=== PATIENT | female | born 1980 | race Caucasian/White ===

== ENCOUNTER 2024-08-25 08:38 | Outpatient (CLI) | payer OTHER, SELFPAY ==
--- OUTSIDE RECORDS SUMMARY | 2024-08-25 08:41 | XMS_ITS | Encounter Summary ---
Author Organization [facility] Address [address] [address] Care Team Providers Care Tank Tester Name Role Phone Unassigned, Provider Primary Care Provider Unava ilable Reason for Visit * Reason Comments Hip Problem Encounter Details Date Type Department Care Team (Late st Contact Info) Description 06/23/2024 1:45 PM CDT Therapy [facility] [place] [id number] [place] [address] [place] [address] [place] [address] Pain of right hip (Primary Dx); Right hip pain Social History Tobacco Use Types Packs/Day Years Used Date Smoking Tobacco: Never Sex and Gender Information Value Date Recorded Sex Assigned at Not on file Gender Identity Not on file Sexual Orientation Not on file documented as of this encounter Progress Notes * Svetlana Aden, PT - 06/23/2024 1:45 PM CDT Physical Therapy Progress Note Visit Number: 3 Initial Certification Period: 06/05/2024 to 09/03/24 Referring Provider: Hellen Hodges Visit Diagnosis: 1. Pain of right hip 2. 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 6/10 after riding No night time pain and good the next day 3x a week of exercises and was really sore OBJECTIVE Current Objective Findings: ROM: AROM of the hip: slight limitations into ER and flexion due to pain and tightness Strength: overall good strength of all myotomes reproduction of hip pain on SLR in supine Functional Tests: patient is able to walk on both level ground and stairs without pain SL sit to stand: x10 on left side x10 on right side but increased lateral lean Treatment/Education Today: Therapuetic exercise x30min Patient was instructed and performed below Home exercise program with varying sets and reps until form adjusted adequately and questions were answered to the best of the PTs ability - sideplank with hip abduction x10 each side *Cues for hips stacked - copenhagen statix x10 each side -wall sit with marches *able to perform today -wall sit hold 2x60s holds -single leg sit to stand x5 *just felt wobbly -single leg bridge x10 each side *very hard -figure 4 bridge x10 each side *easier Timed Code Treatment Minutes: 30 Total Treatment Minutes: 30 Current Home Exercise Program List: Access Code: [email or web address] URL: [email or web address] Date: 06/23/2024 Prepared by: Svetlana Heredia Exercises - Wall Squat - 1 x daily - 3-4 x weekly - 4 sets - 60s hold - Modified Side Plank with Hip Abduction - 1 x daily - 3-4 x weekly - 3 sets - 10 reps - [place] - Short Lever Moving Leg - 1 x daily - 3-4 x weekly - 3 sets - 10 reps - Figure 4 Bridge - 1 x daily - 3-4 x weekly - 3 sets - 10 reps *changed HEP ASSESSMENT/PROGRESS TOWARD GOALS: Pt comes in for right front hip pain that flairs with horseback riding and running. Soreness is getting better. Discussion that she can continue to perform her sport if pain continues to calm down bythe next day and she can continue her HEP. Exercise routine changed to every other day due to patient soreness. Skilled PT services are needed to address above issues. Functional Goals/Outcomes: Independent with HEP Patient will be able to ride a horse without pain Patient will be able to sleep without pain Goals to be achieved within 4-6 week time frame. PLAN: Hip strengthening documented in this encounter Plan of Treatment Upcoming Encounters Date Type Department Care Team (Late st Contact Info) Description 09/11/2024 2:00 PM CDT Appointment [facility] [place] [id number] [place] [address] [place] [address] [place] [address] documented as of this encounter Visit Diagnoses Diagnosis Pain of right hip- Primary Right hip pain Pain in joint, pelvic region and thigh documented in this encounter Care Teams Tank Tester Relationship Specialty Start Date End Date Unassigned, Provider [address] [place] [address] PCP - General 10/18/02 documented as of this encounter
--- OUTSIDE RECORDS SUMMARY | 2024-08-25 08:41 | XMS_ITS | Encounter Summary ---
Author Organization [facility] Address [address] [place] [address] Care Team Providers Care Meter Reading Clerk Name Role Phone Unassigned, Provider Primary Care Provider Unava ilable Reason for Visit * Reason Comments Hip Problem * Therapies (Routine) - New Request Specialty Diagnoses / Procedures Referred By Contac t Referred To Contact Diagnoses Right hip pain Hellen Hodges, PA-C [address] [place] [id number] Referral ID Status Reason Start Date Expiration Date V isits Requested Visits Authorized [id number] New Request 06/05/2024 06/05/2025 1 1 Encounter Details Date Type Department Care Team (Late st Contact Info) Description 06/05/2024 1:00 PM CDT Therapy [facility] [place] [address] [place], [place] [id number] [place] [address] [place] [id number] Right hip pain (Primary Dx) Social History Tobacco Use Types Packs/Day Years Used Date Smoking Tobacco: Never Sex and Gender Information Value Date Recorded Sex Assigned at Not on file Gender Identity Not on file Sexual Orientation Not on file documented as of this encounter Progress Notes * Nestor Fitzgerald, PT - 06/05/2024 1:00 PM CDT Physical Therapy Hip Evaluation/Plan of Care Initial Certification Period: 06/05/2024 to 09/03/24 Referring Provider: Hellen Hodges Visit Diagnosis: 1. Right hip pain Precautions: None Orders: Evaluate & treat Onset/Referral Date: 2 months SUBJECTIVE Reason for Visit: Patient is a 43 year old female presenting with c/o right hip pain and some left knee pain. She denies any specific event that might have caused it even though she suspect that riding her horse is the reason for the hip pain as this is pretty much the only time she has the pain. The pain in the hip is localized to the anterior aspect of the hip. As for the left knee, she only experiences occasional pain when going down stairs or getting off her horse. Patient Therapy Goals:Resume previous level of activity symptom free. Past Medical History: Patient has no past medical history on file. Recently Experienced (Red Flags): none Previous Treatment: None Benefited from previous treatment: not applicable Work/Leisure/Sport: salesperson pets and pet supplies; for exercises she rides horses 4-6 times a week, Patient History: Moderate Complexity: 1-2 personal factors and/or comorbidities that impact plan of care: see medical Hx and subjective part OBJECTIVE Gait Exam: Normal Screening: LB: essentially full in all planes without any reproduction of her symptoms ROM: AROM of the hip: slight limitations into ER and flexion due to pain and tightness Strength: overall good strength of all myotomes with reproduction of hip pain on SLR in supine Joint Mobility: NT Palpation/Tenderness: NT Special Tests: Fabers test: (++) Proprioception: NT Functional Tests: patient is able to walk on both level ground and stairs without pain PT - Musculoskeletal - Hip Hip Outcomes Score - ADL (0-100%, 100% being best): 75 Clinical Examination: Moderate Complexity: Addressed 3 elements from body structures and functions (see above), and/or functional limitations as noted below. Today's Intervention/Charges: Physical Therapy Evaluation was completed and the patient was educated on the condition, planned therapy intervention and expectations from treatment. Therapeutic exercise x 12 minutes: Patient was instructed in the course of her rehab, which will focus on hip strengthening. WE also asked the patient to do her best to avoid any activities that cause pain. For HEP, she was provided with the following exercise program: Access Code: [email or web address] URL: [email or web address] Date: 06/05/2024 Prepared by: Taiwo Fitzgerald Exercises - Supine Single Knee to Chest Stretch - 3 x daily - 7 x weekly - 3 sets - 10 reps - 10 seconds hold - Butterfly Groin Stretch - 3 x daily - 7 x weekly - 3 sets - 10 reps - 10 seconds (do in sitting on a chair) hold - Seated Isometric Hip Adduction with Ball - 3 x daily - 7 x weekly - 3 sets - 10 reps - 10 secondshold - Supine Active Straight Leg Raise - 3 x daily - 7 x weekly - 3 sets - 10 reps - Sidelying Hip Abduction - 3 x daily - 7 x weekly - 3 sets - 10 reps - Supine Bridge - 3 x daily - 7 x weekly - 3 sets - 10 reps - Wall Quarter Squat - 3 x daily - 7 x weekly - 3 sets - 10 reps - 10 seconds hold Timed Code Treatment Minutes: 12 Total Treatment Minutes: 25 ASSESSMENT Therapist Impression/Summary: Right hip pain PT Clinical Presentation: Moderate Complexity: Evolving Clinical Presentation with changing clinical characteristics Clinical Decision Making: Moderate Complexity Recommendations/Equipment: No additional recommendations at this time Significant Impairments: Pain, ROM Limitation Functional Limitations: difficulty sleeping and difficulty with sports/leisure activities Goals/Functional Outcomes: Independent with HEP Patient will be able to ride a horse without pain Patient will be able to sleep without pain Goals to be achieved within 4-6 week time frame. Barriers to Goal Achievement or Learning: none Prognosis: Good PLAN Planned Intervention/Education: Education, Manual Therapy, Therapeutic Exercise Frequency: 1 x week, 2 x week Duration: 45 days Discharge Plan: Patient will be discharged from therapy when goals are achieved or patient plateausin progress. Informed Consent: Patient and/or family in agreement with the care plan. Plan for Next Treatment: patient was encouraged to schedule more visits. The radon inspector is completed by the therapist and the referring clinician's electronic signature certifies medical necessity for the plan above. documented in this encounter Plan of Treatment Upcoming Encounters Date Type Department Care Team (Late st Contact Info) Description 09/11/2024 2:00 PM CDT Appointment [facility] [address] [address] [place] [address] [place] [address] Scheduled Referrals Name Type Priority Associated Diagnoses Orde r Schedule Physical Therapy Referral Routine Right hip pain Ordered: 06/05/2024 documented as of this encounter Visit Diagnoses Diagnosis Right hip pain- Primary Pain in joint, pelvic region and thigh documented in this encounter Care Teams Meter Reading Clerk Relationship Specialty Start Date End Date Unassigned, Provider [address] [place] [address] PCP - General 10/18/02 documented as of this encounter
--- OUTSIDE RECORDS SUMMARY | 2024-08-25 08:41 | XMS_ITS | Referral Summary ---
Author Organization [facility] Address [address] [place] [address] Care Team Providers Care Dress Draper Name Role Phone Antonio Thomson MD Primary Care Provide r Allergies Active Allergy Reactions Criticality Noted Date Comments Sulfa Antibiotics Itching 03/02/2022 rash Medications Medication Sig Dispensed Refills Start Date End Date Status oxyCODONE (ROXICODONE) 5 MG tablet Take 1 tablet (5 mg) by mouth every 6 hours as needed for breakthrough pain or pain 6 tablet 03/02/2022 Active Active Problems No known active problems Immunizations Name Administration Dates Next Due Historical DTP/aP 11/20/1985,08/29/1982,06/29/19 82,03/29/1982 MMR 04/20/1983 Mantoux Tuberculin Skin Test 12/25/1982 OPV, trivalent, live 07/15/1988,11/20/1985 TD,PF 7+ (Tenivac) 07/15/1988 Social History Tobacco Use Types Packs/Day Years Used Date Smoking Tobacco: Never Assessed Adolescent Education Answer Date Record ed Getting School Help Needed Not on file 08/22 Sex and Gender Information Value Date Recorded Sex Assigned at Not on file Gender Identity Not on file Sexual Orientation Not on file Last Filed Vital Signs Vital Sign Reading Time Taken Comments Blood Pressure 109/66 03/02/2022 6:30 PM CDT Pulse 75 03/02/2022 6:30 PM CDT Temperature 36.7 ??C (98.1 ??F) 03/02/2022 1:30 PM CD T Respiratory Rate 18 03/02/2022 4:00 PM CDT Oxygen Saturation 98% 03/02/2022 6:30 PM CDT Inhaled Oxygen Concentration - - Weight 71.2 kg (157 lb) 03/02/2022 1:30 PM CDT Height 172.7 cm (5' 8) 03/02/2022 1:30 PM CDT Body Mass Index 23.87 03/02/2022 1:30 PM CDT Plan of Treatment Not on file Care Teams Dress Draper Relationship Specialty Start Date End Date Antonio Thomson MD [address] [id number] PCP - General manager agency 03/02/22
--- OUTSIDE RECORDS SUMMARY | 2024-08-25 08:41 | XMS_ITS | Clinical Summary ---
Author Organization [facility] Address [place], [place] [address] Care Team Providers Care Php Engineer Name Role Phone None Primary Care Provider Unavailabl e Allergies Active Allergy Reactions Criticality Noted Date Comments Sulfa (Sulfonamide Antibiotics) *Unknown 03/15 Medications Medication Sig Dispensed Refills Start Date End Date Status turmeric 400 mg cap Take by mouth. A ctive ibuprofen (ADVIL; MOTRIN) 600 mg tabletIndications:S/P laparoscopic surgery Take 1 Tablet (600 mg) by mouth every 6 hours if needed for Pain. Maximum of 3200 mg in 24 hours. 30 Tablet 04/02/2022 Active benzonatate (TESSALON) 200 mg capsuleIndications:CO VID-19 Take 1 Capsule (200 mg) by mouth 3 times daily if needed for Cough. 21 Capsule 07/12/2022 Active Amphetamine-Dextroamp hetamine (ADDERALL) 15 mg tablet 08/30/2023 Active dextroamphetamine-amp hetamine (ADDERALL XR) 10 mg Extended-Release capsule Take 10 mg by mouth once daily. 07/06/2023 Active dextroamphetamine-amp hetamine (ADDERALL XR) 15 mg Extended-Release capsule Take 15 mg by mouth once daily. 08/16/2023 Active lisdexamfetamine (VYVANSE) 20 mg capsule Take 20 mg by mouth once daily. 11/01/2023 Active tiZANidine (ZANAFLEX) 4 mg tablet TAKE 1 TABLET BY MOUTH AT BEDTIME NEEDED FOR PAIN 08/16/2023 Active methylPREDNISolone (MEDROL DOSEPAK) 4 mg tablet USE DIRECTED 08/17/2023 Active calcium phosphate dibas/vit D3 (VITAMIN D, WITH CALCIUM, ORAL) Vitamin D Active dextroamphetamine-amp hetamine (ADDERALL XR) 20 mg Extended-Release capsule 08/30/2023 Active Active Problems No known active problems Family History Medical History Relation Name Comments Genetic Other Family history of:~Skin Cancer- mother~~Breast Cancer: mat aunt~~Ovarian Cancer: No~~Colon CA: No~~Prostate/Testicular CA: No~~Osteoporosis: No~~Early CAD: No~~DM: No~~Thyroid Dz: No Relation Name Status Comments Other Social History Tobacco Use Types Packs/Day Years Used Date Smoking Tobacco: Former Smokeless Tobacco: Never Tobacco Cessation:Counseling Given: Yes Alcohol Use Standard Drinks/Week Comments Yes 0 (1 standard drink = 0.6 oz pur e alcohol) a few drinks a week if that Social Connections Answer Date Recorded Frequency of Communication with Friends and Fami ly Not on file 05/15/2022 Sex and Gender Information Value Date Recorded Sex Assigned at Not on file Gender Identity Not on file Sexual Orientation Not on file Obstetrics History Last Filed Vital Signs Vital Sign Reading Time Taken Comments Blood Pressure 104/62 11/18/2023 1:54 PM CHIN STRAP MAKER Pulse 81 11/18/2023 1:04 PM CHIN STRAP MAKER Temperature 36.7 ??C (98 ??F) 11/18/2023 1:04 PM CHIN STRAP MAKER Respiratory Rate 12 11/18/2023 1:04 PM CHIN STRAP MAKER Oxygen Saturation 100% 11/18/2023 1:04 PM CHIN STRAP MAKER Inhaled Oxygen Concentration - - Weight 73.8 kg (162 lb 11.2 oz) 11/18/2023 1:04 PM CHIN STRAP MAKER Height 172.7 cm (5' 8) 04/02/2022 8:36 AM CDT Body Mass Index 24.74 04/02/2022 8:36 AM CDT Plan of Treatment Health Maintenance Due Date Last Done Comments Tdap 1992 Depression screening for age 12+ 1993 HIV for age 15-65 1996 BMI (ht and wt on same day) for age 18+ 1999 Hepatitis C screening for ag e 18-79 1999 Tetanus booster 2001 Pap test for age 21-65 2002 COVID-19 vaccine series (2023- season) 2024 Influenza for age 9-49 07/16/2024 Pneumococcal series for age 6-64 Aged Out No longer eligible based on patient's age to complete this topic Advance Directives * Full Code (Latest Code Status on File) Date Activated Date Inactivated Comments 04/02/2022 8:17 AM 04/02/2022 4:33 PM Question Answer Comments Code Status Discussion: Reviewed Preferences Care Teams Php Engineer Relationship Specialty Start Date End Date None . PCP - General 11/18/23
--- OUTSIDE RECORDS SUMMARY | 2024-08-25 08:41 | XMS_ITS | Encounter Summary ---
Author Organization [facility] Address [address], [place] [address] Care Team Providers Care Reading Tutor Name Role Phone Unassigned, Provider Primary Care Provider Unava ilable Reason for Visit * Reason Comments Hip Problem Encounter Details Date Type Department Care Team (Late st Contact Info) Description 06/16/2024 1:45 PM CDT Therapy [facility] [place] [id number] [place] [address] [place] [address] [place] [address] Pain of right hip (Primary Dx); Right hip pain Social History Tobacco Use Types Packs/Day Years Used Date Smoking Tobacco: Never Sex and Gender Information Value Date Recorded Sex Assigned at Not on file Gender Identity Not on file Sexual Orientation Not on file documented as of this encounter Progress Notes * Svetlana Aden, PT - 06/16/2024 1:45 PM CDT Physical Therapy Progress Note Visit Number: 2 Initial Certification Period: 06/05/2024 to 09/03/24 Referring Provider: Hellen Hodges Visit Diagnosis: 1. Pain of right hip 2. Right hip pain Precautions: none SUBJECTIVE: Constant low level pain in the hip with doing exercises 1-2/10 Is riding and that is when hip hurts- lateral work was causing increased pain so has stopped this Also shows dogs so is running/doing agility with them and this flairs it Riding itself is getting better- soreness but can sleep 3x10 1 x daily exercises but they are easy Adductor movement is the worst- increased achiness Left knee pain hurts when striking down OBJECTIVE Current Objective Findings: ROM: AROM of [...] but increased lateral lean Treatment/Education Today: Therapuetic [id number] -active listening of pts concerns -encouraged to slowly get back to lateral horseback riding, discussed that she can flair her symptoms and not hurt anything as her symptoms calm back down by the next day -discussion of treatment options do not change if labral tear or not. Treating weakness noted in right leg Therapuetic exercise x30min Patient was instructed and performed below Home exercise program with varying sets and reps until form adjusted adequately and questions were answered to the best of the PTs ability - sideplank with hip abduction x10 each side - copenhagen statix 2 x10 each side -wall sit with marches *unable to perform -wall sit hold -single leg sit to stand x10 each side *decreased balance and increased lean right on right leg Timed Code Treatment Minutes: 38 Total Treatment Minutes: 38 Current Home Exercise Program List: Access Code: [email or web address] URL: [email or web address] Date: 06/16/2024 Prepared by: Svetlana Heredia Exercises - Wall Squat - 1 x daily - 7 x weekly - 3 sets - 10 reps - Modified Side Plank with Hip Abduction - 1 x daily - 7 x weekly - 3 sets - 10 reps - [place] [facility] - Short Lever Moving Leg - 1 x daily - 7 x weekly - 3 sets - 10 reps - Single Leg Sit to Stand with Arms Crossed - 1 x daily - 7 x weekly - 3 sets - 10 reps *changed HEP ASSESSMENT/PROGRESS TOWARD GOALS: Pt comes in for right front hip pain that flairs with horseback riding and running. Pt reports 3/10pain compared to 11/24 coming into session after exercises. Discussion that she can continue to perform her sport if pain continues to calm down by the next day and she can continue her HEP. Changed her HEP to address strength deficits. Skilled PT services are needed to address [...] 2:00 PM CDT Appointment [facility] [place] [id number] [place] [address] [place] [address] [place] [address] documented as of this encounter Visit Diagnoses Diagnosis Pain of right hip- Primary Right hip pain Pain in joint, pelvic region and thigh documented in this encounter Care Teams Reading Tutor Relationship Specialty Start Date End Date Unassigned, Provider [address] [place] [address] PCP - General 10/18/02 documented as of this encounter
--- OUTSIDE RECORDS SUMMARY | 2024-08-25 08:41 | XMS_ITS | Encounter Summary ---
Author Organization [facility] Address [address] [address] Care Team Providers Care Turbogenerator Operator Name Role Phone Unassigned, Provider Primary Care Provider Unava ilable Reason for Visit * Reason Comments Hip Problem Encounter Details Date Type Department Care Team (Late st Contact Info) Description 06/30/2024 1:45 PM CDT Therapy [facility] [place] [address] [place] [address] [place] [address] [place] [address] Pain of right hip (Primary Dx); Right hip pain Social History Tobacco Use Types Packs/Day Years Used Date Smoking Tobacco: Never Sex and Gender Information Value Date Recorded Sex Assigned at Not on file Gender Identity Not on file Sexual Orientation Not on file documented as of this encounter Progress Notes * Svetlana Aden, PT - 06/30/2024 1:45 PM CDT Physical Therapy Progress Note Visit Number: 4 Initial Certification Period: 06/05/2024 to 09/03/24 Referring Provider: Hellen Hodges Visit Diagnosis: 1. Pain of right hip 2. Right hip pain Precautions: none SUBJECTIVE: Hasn't been doing exercises 1.5x maybe this week. Hip is feeling the same- more lateral stuff and working with a horse. Not as bad as first came in to PT though OBJECTIVE Current Objective Findings: ROM: AROM of [...] increased lateral lean Treatment/Education Today: Therapuetic exercise x15min Patient was instructed and performed below Home exercise program with varying sets and reps until form adjusted adequately and questions were answered to the best of the PTs ability - sideplank with hip abduction x10 each side *Cues for hips stacked -wall sit hold x60s holds -figure 4 bridge x10 each side -[place] with top knee bent *felt more in core Therapuetic [id number] -review of current status/symptoms as it pertains to meeting patietn goals -motivational interviewing on how to prioritize exercise routine -discussion that conservative treatment is best option for her pains Timed Code Treatment Minutes: 23 Total Treatment Minutes: 23 Current Home Exercise Program List: Access Code: [email or web address] URL: [email or web address] Date: 06/23/2024 Prepared by: Svetlana Heredia Exercises - Wall Squat - 1 x daily - 3-4 x weekly - 4 sets - 60s hold - Modified Side Plank with Hip Abduction - 1 x daily - 3-4 x weekly - 3 sets - 10 reps - [place] - Short Lever Moving Leg - 1 x daily - 3-4 x weekly - 3 sets - 10 reps - Figure 4 Bridge - 1 x daily - 3-4 x weekly - 3 sets - 10 reps ASSESSMENT/PROGRESS TOWARD GOALS: Pt comes in for right front hip pain that flairs with horseback riding and running. Soreness is getting better then when started PT. Pt is not consistent with HEP due to business of life. Reviewed HEP for correct form. Skilled PT services are needed to address above issues. Functional Goals/Outcomes: Independent with HEP Patient will be able to ride a horse without pain Patient will be able to sleep without pain Goals to be achieved within 4-6 week time frame. PLAN: Hip strengthening- follow up in 1 month documented in this encounter Plan of Treatment Upcoming Encounters Date Type Department Care Team (Late st Contact Info) Description 09/11/2024 2:00 PM CDT Appointment [facility] [place] [id number] [place] [address] [place] [address] [place] [address] documented as of this encounter Visit Diagnoses Diagnosis Pain of right hip- Primary Right hip pain Pain in joint, pelvic region and thigh documented in this encounter Care Teams Turbogenerator Operator Relationship Specialty Start Date End Date Unassigned, Provider [address] [place] [address] PCP - General 10/18/02 documented as of this encounter
--- OUTSIDE RECORDS SUMMARY | 2024-08-25 08:41 | XMS_ITS | Patient Health Record ---
Author Organization [facility] Address [address] [place] [address] Care Team Providers Care Specialty Transformer Assembler Name Role Phone Jennie Cho Primary Care Provider [phone] Allergies Allergen (clinical drug ingredient) Drug/Non Drug Allergy documented on EMR Reaction Allergy Type Onset Date Status Substance with sulfonamide structure and antibacterial mechanism of action (substance) Sulfa Antibiotics Unknown Drug Allergy Active Reason For Referral No Information Medications Medication SIG (Take, Route, Fr equency, Duration) Notes Start Date End Date Status tiZANidine HCl PRN Not-T aking Turmeric Active Melatonin PRN Active Vitamin D Active Social History Tobacco Use: Social History Observation Description Date Details (start date - stop date) Never Smoker NA - NA Tobacco Use/Smoking Question Answer Notes Are you a nonsmoker Alcohol Screen (Audit-C) Question Answer Notes Did you have a drink containing alcohol in the p ast year? 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
--- OUTSIDE RECORDS SUMMARY | 2024-08-25 08:41 | XMS_ITS | Clinical Summary ---
Author Organization [facility] Address [address] [place] [address] Care Team Providers Care Professional Security Officer Name Role Phone Unassigned, Provider Primary Care Provider Unava ilable Source Comments You are receiving this document as you are listed as the primary care provider,follow-up provider, or the patient has been referred to you for consultation.This is in compliance with the Medicare and[facility] EHR Incentive Program,which states Providers who transition their patient to another setting of careor provider of care or refers their patient to another provider of care shouldprovide summary care record for each transition of care or referral. [facility] Allerg[facility] Active Allergy Reactions Criticality Noted Date Comments Sulfa Antibiotics Rash 06/05/2024 Medications Medication Sig Dispensed Refills Start Date End Date Status Norelgestromin-Eth Estradiol (AKA ORTHO EVRA) 150-35 MCG/24HR patch Apply 1 patch topically once a week. LW Addl Instr:APPLY ONE PATCH EACH WEEK FOR 3 WEEKS (21 DAYS TOTAL), FOLLOWED BY ONE WEEK THAT IS PATCH-FREE, THEN REPEAT. INDICATED FOR CONTRACEPTION. 3 3 04/07/2005 Active Additional Information Patient not taking.Reported on 06/05/2024 Encounters Date Type Department Care Team Description 07/31/2024 9:30 AM CDT Therapy [facility] [address] [address] Svetlana Aden, PT Pain of right hip (Primary Dx) 06/30/2024 1:45 PM CDT Therapy [facility] [address] [address] Svetlana Aden, PT Pain of right hip (Primary Dx); Right hip pain 06/23/2024 1:45 PM CDT Therapy [facility] Physical [address] [address] MarkieMonicabetsy Flores, PT Pain of right hip (Primary Dx); Right hip pain 06/16/2024 1:45 PM CDT Therapy [facility] Physical [address] [address] Svetlana Aden, PT Pain of right hip (Primary Dx); Right hip pain 06/05/2024 1:00 PM CDT Therapy [facility] Physical [address] [address] Nestor Fitzgerald, PT Right hip pain (Primary Dx) 06/05/2024 10:55 AM CDT Ancillary Procedure [facility] [address] Radiology [address] [place] [address] Hellen Hodges PA-C Pain of right hip 06/05/2024 10:40 AM CDT Office Visit [facility] Medicine [address] [place] [address] Hellen Hodges PA-C Right hip pain (Primary Dx); Left knee pain, unspecified chronicity 06/05/2024 Notes/Orders [facility] Physical [address] [address] Nestor Fitzgerald, PT Pain of right hip (Primary Dx) from Last 3 Months Social History Tobacco Use Types Packs/Day Years Used Date Smoking Tobacco: Never Tobacco Cessation:Counseling Given: Not Answered Sex and Gender Information Value Date Recorded Sex Assigned at Not on file Gender Identity Not on file Sexual Orientation Not on file Last Filed Vital Signs Vital Sign Reading Time Taken Comments Blood Pressure 96/70 04/07/2005 10:41 AM CDT Pulse 84 04/07/2005 10:41 AM CDT Temperature - - Respiratory Rate - - Oxygen Saturation - - Inhaled Oxygen Concentration - - Weight 70.4 kg (155 lb 1.5 oz) 06/05/2024 10:49 AM CDT Height 174 cm (5' 8.5) 06/05/2024 10:49 AM CDT Body Mass Index 23.24 06/05/2024 10:49 AM CDT Plan of Treatment Upcoming Encounters Date Type Department Care Team (Late st Contact Info) Description 09/11/2024 2:00 PM CDT Appointment [facility] [place] [address] [place] [address] [place] [address] [place] [address] Health Maintenance Due Date Last Done Comments Cervical Cancer Screening Due 1981 Hep C Screening (Preventive Services) 1981 Mammogram 1981 HIV Screening (Preventive Services) 1997 Adult Preventive Visit 1999 DTaP/Tdap/Td (1 - Tdap) 2000 HepB (1) 2000 COVID-19 Vaccine (2023-2 5 season) 2024 Influenza (#1) 2024 Zoster/Shingles (1 of 2) 2031 HPV Vaccine Aged Out No longer eligi ble based on patient's age to complete this topic HepA Aged Out No longer eligi ble based on patient's age to complete this topic Hib Aged Out No longer eligi ble based on patient's age to complete this topic IPV (Polio) Aged Out No longer eligi ble based on patient's age to complete this topic Infant RSV Aged Out No longer eligi ble based on patient's age to complete this topic MCV4 Aged Out No longer eligi ble based on patient's age to complete this topic Pneumococcal Aged Out No longer eligi ble based on patient's age to complete this topic Procedures Procedure Name Priority Date/Time Associated Diagnosis Comments XR PELVIS W RT LATERAL HIP Routine 06/05/2024 11:03 AM CDT Pain of right hip from Last 3 Months Results * XR Pelvis W Rt Lateral Hip (06/05/2024 11:03 AM CDT) Anatomical Region Laterality Modality Pelvis, Hip Digital Radiogra phy 06/05/2024 10:5 4 AM CDT Impressions 06/05/2024 1:02 PM CDT COMPARISON: ??None. FINDINGS: ??Bony structures appear intact. ??Joint spaces appear within normal limits. ??There is no dislocation or significant degenerative change in the hips or SI joints. Narrative Procedure Note John Holm MD - 06/05/2024 IMPRESSION COMPARISON: None. FINDINGS: Bony structures appear intact. Joint spaces appear withinnormal limits. There is no dislocation or significant degenerative changein the hips or SI joints. Hellen DURANT from Last 3 Months Care Teams Professional Security Officer Relationship Specialty Start Date End Date Unassigned, Provider [address] [place] [address] PCP - General 10/18/02
--- OUTSIDE RECORDS SUMMARY | 2024-08-25 08:41 | XMS_ITS | Encounter Summary ---
Author Organization [facility] Address [address] [place] [address] Care Team Providers Care Software Deployment Engineer Name Role Phone Unassigned, Provider Primary Care Provider Unava ilable Reason for Referral * Therapies (Routine) - New Request Specialty Diagnoses / Procedures Referred By Mary Anne gross Referred To Contact Diagnoses Right hip pain Hellen Hodges PA-C [address] [facility] [place] [address] Referral ID Status Reason Start Date Expiration Date V isits Requested Visits Authorized [id number] New Request 06/05/2024 06/05/2025 1 1 Scheduling Instructions Your clinician has recommended an appointment with Physical Therapy and Rehabilitation Services. You can quickly make your appointment online at [employer]/schedule. You can also call [phone] for help scheduling your appointment. We suggest you call your health insurance company about your coverage and benefits for this appointment. Question Answer Appointment Urgency? Non-Urgent Requested Services Evaluate and treat May use saline for irrigation or cleansing Yes dexamethasone use Yes May check glucose per protocol (see policy link below) or if patient has symptoms? Yes Comments Right hip suspected labral tear - glute strengthening program. Modalities as appropriate. Left knee pain - suspect patellofemoral vs IT band syndrome, didn't do full exam. Eval and treat. * Procedure/Equipment (Routine) - Incomplete Specialty Diagnoses / Procedures Referred By Mary Anne gross Referred To Contact Diagnoses Pain of right hip Procedures XR Pelvis W Rt Lateral Hip Hellen Hodges PA-C [address] [facility] [address] [address] Referral ID Status Reason Start Date Expiration Date V isits Requested Visits Authorized [id number] Incomplete 06/05/2024 09/04/2025 1 1 Reason for Visit * Reason Comments CONSULT Right hip DOP: 2 mon ths ESCOBAR:No injury pain starts when being active in the hip joint, especially horse back riding Encounter Details Date Type Department Care Team (Late st Contact Info) Description 06/05/2024 10:40 AM CDT Office Visit [facility] Sports Medicine [address] [place] [phone] Hellen Hodges PA-C [address] [facility] [address] [phone] Right hip pain (Primary Dx); Left knee pain, unspecified chronicity Social History Tobacco Use Types Packs/Day Years Used Date Smoking Tobacco: Never Tobacco Cessation:Counseling Given: Not Answered Sex and Gender Information Value Date Recorded Sex Assigned at Not on file Gender Identity Not on file Sexual Orientation Not on file documented as of this encounter Last Filed Vital Signs Vital Sign Reading Time Taken Comments Blood Pressure - - Pulse - - Temperature - - Respiratory Rate - - Oxygen Saturation - - Inhaled Oxygen Concentration - - Weight 70.4 kg (155 lb 1.5 oz) 06/05/2024 10:49 AM CDT Height 174 cm (5' 8.5) 06/05/2024 10:49 AM CDT Body Mass Index 23.24 06/05/2024 10:49 AM CDT documented in this encounter Patient Instructions * Patient Instructions* Hellen Hodges PA-C - 06/05/2024 10:40 AM CDT You can do all of this together: 1000mg Tylenol up to 3 times a day as needed for pain. 600mg ibuprofen every 6 hours as needed for pain, especially before activity. Rub Voltaren Gel/Diclofenac Gel (topical antiinflammatory) over the affected joint up to 4 times a day. Ice for 20 minutes 3-4 times a day, especially after activity. Lidocaine patch - okay for nighttime use, but not recommended during the day. Do not take multiple NSAIDs at the same time. Meaning pick one and stick with that one. They work the same in the body and can cause kidney trouble if you take too much. Examples of NSAIDs: ibuprofen, Motrin, Advil, Naproxen, Aleve, Toradol, Celebrex. It is not recommended to take NSAIDs when also on a blood thinner. documented in this encounter Progress Notes * Hellen Hodges PA-C - 06/05/2024 10:40 AM CDT Subjective: Chief Complaint Right Hip Pain Laxmi Schulz is a 43 y.o. female presenting for evaluation and treatment of right hip pain. She reports onset of pain around 2 months ago with no injury. 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 She does a lot of really hard rides which involves a lot of scooping of her pelvis. She states the pain has gotten so bad that it was very hard for her to ride horses anymore. She typically roll ride 4-6 days a week with at least 1 day with her sports medicine trainer each week. She also notes that the horse that she rides is bigger than typical, which causes her legs to be in a wider position than typical. She has been wearing up for fall show season, but has been having a hard time keeping up with training. She complains of right groin pain that is achy and throbbing. Pain increases with range of motion and when riding her horse. She states it make it difficult to find a comfortable position to sleep in. By the time she wakes up the following morning she feels okay. Shehas been utilizing Tylenol for pain management. She also mentions her left knee at the end of the visit, stating that she gets a very sharp acute pain when stepping off of the horse or stairs. This pain does not last. Is hard for her to pinpoint the pain but she thinks it is more in the front of her knee. She was also noticed that her knee becomes noisy when she is doing range of motion. Past Medical History, Past Surgical History, Social History, and Family Medical History was reviewed and updated as appropriate. A complete review of systems was reviewed per the intake sheet and negative except as noted in HPI. Allergies Allergen Reactions Sulfa Antibiotics Rash Objective: General : alert, cooperative, no distress, appears stated age Gait: Normal. The patient can bear weight on the injured extremity. Skin: Clean, dry, intact. No rashes or lesions. Right Hip; Left Knee Hip Palpation: no tenderness over the greater trochanter Hip ROM: Flexion: 120 Internal Rotation: 10 External Rotation: 30 Scouring Test: positive Hip Strength: 5/5 hip flexion, 5/5 hip adduction, 5/5 hip abduction Knee ROM: 0 to 140 degrees with subpatellar crepitance. Patella: Patella does track normally. Patellar apprehension test: negative Patellar compression test: negative Imaging X-rays: 3 views of the hip were taken and independently reviewed. Appropriate joint space. She doeshave a mild deformity to the femoral head which may be a minor cam deformity. No evidence of acute fracture. Assessment: Right hip pain, suspected labral tear Left knee pain, suspected ITBs versus patellofemoral Plan: We discussed the diagnosis and treatment options. We opted to move forward with physical therapy tofocus on glute strengthening. We did discuss the use of a intra-articular cortisone injection for the right hip, but she would like to hold off on cortisone. We also discussed moving forward with a MR arthrogram to evaluate for a labral tear, but it would not change our treatment plan so we are going to hold off for now. I provided OTC pain management recommendations. She will follow up as needed. Patient verbalized understanding and agreement to our treatment plan. All of her questions were answered to her satifaction. Hellen Hodges PA-C This note contains medical terminology which is meant for communication between health care clinicians and providers. Please note that vocabulary/phrasing/abbreviations may not carry the same definitions as they would in normal conversational speech. Additionally voice recognition software was usedto generate this note. As a result, wrong word or 'zyqnp-o-wzey' substitutions may have occurred due to the inherent limitations of voice recognition software. There may be errors in the script that have gone undetected. Please consider this when interpreting information found in this chart. documented in this encounter Plan of Treatment Upcoming Encounters Date Type Department Care Team (Late st Contact Info) Description 09/11/2024 2:00 PM CDT Appointment [facility] [place] [address] [place] [address] [place] [address] [place] [address] Scheduled Referrals Name Type Priority Associated Diagnoses Orde r Schedule Physical Therapy Referral Routine Right hip pain Ordered: 06/05/2024 documented as of this encounter Results * XR Pelvis W Rt Lateral [...] changein the hips or SI joints. Hellen Hodges PA-C [facility] documented in this encounter Visit Diagnoses Diagnosis Right hip pain- Primary Pain in joint, pelvic region and thigh Left knee pain, unspecified chronicity Pain of right hip documented in this encounter Care Teams Software Deployment Engineer Relationship Specialty Start Date End Date Unassigned, Provider [address] [place] [address] PCP - General 10/18/02 documented as of this encounter
--- OUTSIDE RECORDS SUMMARY | 2024-08-25 08:41 | XMS_ITS | Encounter Summary ---
Author Organization [facility] Address [address], [place] [address] Care Team Providers Care Bathhouse Keeper Name Role Phone Unassigned, Provider Primary Care Provider Unava ilable Reason for Referral * Therapies (Routine) - New Request Specialty Diagnoses / Procedures Referred By Contac t Referred To Contact Diagnoses [place] [address] [place] [address] [address] Referral ID Status Reason Start Date Expiration Date V isits Requested Visits Authorized [id number] New Request 06/05/2024 09/04/2025 1 1 Scheduling Instructions If scheduling assistance is needed, please inquire with the medical office staff upon exiting your appointment or contact the ordering clinic for recommended locations. This recommended service/s may not be covered by your insurance coverage. To find out your specific benefit coverage, please call the number on your insurance card. Question Answer Therapy Physical Therapy PT: Follow Up Every week How many times per week? 1 For how many weeks? 4 PT: Visit Type Follow Up PT: Type of Revisit In-Person Visit PT: Treatment Team Team Encounter Details Date Type Department Care Team (Late st Contact Info) Description 06/05/2024 Notes/Orders [facility] [place] [address] [place] [address] [place] [address] [phone] Pain of right hip (Primary Dx) Social History Tobacco Use Types Packs/Day Years Used Date Smoking Tobacco: Never Sex and Gender Information Value Date Recorded Sex Assigned at Not on file Gender Identity Not on file Sexual Orientation Not on file documented as of this encounter Plan of Treatment Upcoming Encounters Date Type Department Care Team (Late st Contact Info) Description 09/11/2024 2:00 PM CDT Appointment [facility] [address] [address] [place] [address] [place] [address] Scheduled Referrals Name Type Priority Associated Diagnoses Orde r Schedule Rehab Therapies Follow Up Referral Routine Pain of right hip Ordered: 06/05/2024 documented as of this encounter Visit Diagnoses Diagnosis Pain of right hip- Primary documented in this encounter Care Teams Bathhouse Keeper Relationship Specialty Start Date End Date Unassigned, Provider [address] [place] [address] PCP - General 10/18/02 documented as of this encounter
--- OUTSIDE RECORDS SUMMARY | 2024-08-25 08:41 | XMS_ITS | Encounter Summary ---
Author Organization [facility] Address [address], [place] [address] Care Team Providers Care Cost Coordinator Name Role Phone Unassigned, Provider Primary Care Provider Unava ilable Reason for Visit * Reason Comments Hip Problem Encounter Details Date Type Department Care Team (Late st Contact Info) Description 07/31/2024 9:30 AM CDT Therapy [facility] [address] [address] [place] [address] [place] [address] Pain of right hip (Primary Dx) Social History Tobacco Use Types Packs/Day Years Used Date Smoking Tobacco: Never Sex and Gender Information Value Date Recorded Sex Assigned at Not on file Gender Identity Not on file Sexual Orientation Not on file documented as of this encounter Progress Notes * Svetlana Aden, PT - 07/31/2024 9:30 AM CDT Physical Therapy Progress Note Visit Number: 5 Initial Certification Period: 06/05/2024 to 09/03/24 Referring Provider: Hellen Hodges Visit Diagnosis: 1. Pain of right hip Precautions: none SUBJECTIVE: Is sore in hip, dull/ache Nothing the next day No sharp pains Other hip is good. Is still feeling left hip weakness, feels muscle imbalances and her horse feels them too OBJECTIVE Current Objective Findings: ROM: AROM of [...] increased lateral lean Treatment/Education Today: Therapuetic exercise x23min Patient was instructed and performed below Home exercise program with varying sets and reps until form adjusted adequately and questions were answered to the best of the PTs ability -standing clamshell with blue resistnace band 2x20 -wall sit marches x10 each side 5s holds Single leg sit to stand x10 each side *unable to do from 90 degree knee bend position Therapuetic [id number] -review of current status/symptoms as it pertains to meeting patietn goals -discussion that conservative treatment is best option for her pains Timed Code Treatment Minutes: 38 Total Treatment Minutes: 38 Current Home Exercise Program List: Access Code: [email or web address] URL: [email or web address] Date: 07/31/2024 Prepared by: Svetlana Aden Exercises - Wall Squat with Leg Lifts - 1 x daily - 7 x weekly - 3 sets - 10 reps - 5s hold - Single Leg Squat with Chair Touch - 1 x daily - 7 x weekly - 3 sets - 10 reps - Standing Clam with Resistance Loop - 1 x daily - 7 x weekly - 3 sets - 20 reps *changed HEP ASSESSMENT/PROGRESS TOWARD GOALS: Pt comes in for right front hip pain that flairs with horseback riding and running. Some soreness when riding but doeasnt last after. More concerned about left hip and the muscle deficits she is feeling now. More consistent with PT exercises at home. Changed HEP to be more functional/up right. Skilled PT services are needed to address [...] 2:00 PM CDT Appointment [facility] [address] [address] [place] [address] [place] [address] documented as of this encounter Visit Diagnoses Diagnosis Pain of right hip- Primary documented in this encounter Care Teams Cost Coordinator Relationship Specialty Start Date End Date Unassigned, Provider [address] [place] [address] PCP - General 10/18/02 documented as of this encounter
--- OUTSIDE RECORDS SUMMARY | 2024-08-25 08:41 | XMS_ITS | Encounter Summary ---
Author Organization [facility] Address [address], [place] [address] Care Team Providers Care Director Post Name Role Phone Unassigned, Provider Primary Care Provider Unava ilable Reason for Visit * Procedure/Equipment (Routine) - Incomplete Specialty Diagnoses / Procedures Referred By Contac t Referred To Contact Diagnoses Pain of right hip Procedures XR Pelvis W Rt Lateral Hip Hellen Hodges PA-C [address] [place] [address] Referral ID Status Reason Start Date Expiration Date V isits Requested Visits Authorized [id number] Incomplete 06/05/2024 09/04/2025 1 1 Encounter Details Date Type Department Care Team (Late Contact Info) Description 06/05/2024 10:55 AM CDT Ancillary Procedure [facility] [address] [address] [address] [place] [phone] Hellen Hodges PA-C [address] [place] [address] Pain of right hip Social History Tobacco Use Types Packs/Day Years Used Date Smoking Tobacco: Never Sex and Gender Information Value Date Recorded Sex Assigned at Not on file Gender Identity Not on file Sexual Orientation Not on file documented as of this encounter Plan of Treatment Upcoming Encounters Date Type Department Care Team (Late Contact Info) Description 09/11/2024 2:00 PM CDT Appointment [facility] [place] [id number] [place] [address] [place] [address] [place] [address] documented as of this encounter Procedures Procedure Name Priority Date/Time Associated Diagnosis Comments XR PELVIS W RT LATERAL HIP Routine 06/05/2024 11:03 AM CDT Pain of right hip documented in this encounter Results * XR Pelvis W [...] the hips or SI joints. Hellen DURANT documented in this encounter Visit Diagnoses Diagnosis Pain of right hip documented in this encounter Care Teams Director Post Relationship Specialty Start Date End Date Unassigned, Provider [address] [place] [address] PCP - General 10/18/02 documented as of this encounter
--- OUTSIDE RECORDS SUMMARY | 2024-08-25 08:41 | XMS_ITS | Clinical Summary ---
Author Organization [facility] Address [address] [place] [id number] Care Team Providers Care Youth Counselor Name Role Phone Antonio Thomson MD Primary [...] 03/02/2022 1:30 PM CDT Plan of Treatment Health Maintenance Due Date Last Done Comments ADVANCE CARE PLANNING 1981 ANNUAL REVIEW OF HM ORDERS 1981 GLUCOSE 1981 YEARLY PREVENTIVE VISIT 1981 DTAP/TDAP/TD IMMUNIZATION (5 - Tdap) 1992 07/15/1988, 11/20/1985, 08/29/1982, Additional history exists HIV SCREENING 1996 HEPATITIS C SCREENING 1999 HEPATITIS B IMMUNIZATION (1 of 3 - 19+ 3-dose series) 2000 LIPID 2021 PHQ-2 (once per calendar year) 2023 MAMMO SCREENING 06/12/2024 06/12/2022 COVID-19 Vaccine ( season) 2024 INFLUENZA VACCINE (#1) 2024 PAP 11/21/2024 11/21/2021, 11/21/2021 RSV VACCINE (1 - 1-dose 75+ series) 2056 HPV IMMUNIZATION Aged Out No longer e ligible based on patient's age to complete this topic MENINGITIS IMMUNIZATION Aged Out No l onger eligible based on patient's age to complete this topic Pneumococcal Vaccine: Pediatrics (0 to 5 Years) and At-Risk Patients (6 to 64 Years) Aged Out No longer eligible based on patient's age to complete this topic RSV MONOCLONAL ANTIBODY Aged Out No l onger eligible based on patient's age to complete this topic Care Teams Youth Counselor Relationship Specialty Start Date End Date Antonio Thomson MD [address] [address] PCP - General sap basis consultant 03/02/22
--- NOTE | 2024-08-25 08:45 | CRLHL7_ITS ---
For Patients: As a result of the Cures Act, medical imaging exams and procedure reports are released immediately into your electronic medical record. You may view this report before your referring provider. If you have questions, please contact your health care provider. CLINICAL HISTORY: LEFT breast lump. COMPARISON: None TECHNIQUE: Digital BILATERAL mammogram in 4 projections with computer-aided detection. Tomosynthesis was used in this interpretation. Real-time ultrasound imaging of LEFT breast with imaging documentation. BREAST COMPOSITION: The breasts are extremely dense, which lowers the sensitivity of mammography. FINDINGS: 3D cc/MLO bilateral mammogram images submitted. No suspicious masses or architectural distortion. No suspicious calcifications or adenopathy. Targeted left breast ultrasound performed at 4 o`clock 3 cm from the nipple. Normal breast tissue is present. No suspicious findings. IMPRESSION: No evidence of malignancy. RECOMMENDATIONS: Annual bilateral screening mammography. BI-RADS Category 2: Benign Results and recommendations discussed with the patient. A lay language report of this examination will be provided to the patient. Dictated by Danial Martinez MD @ 08/25/2024 9:51:22 AM CRL:[email or web address] RD/Dictated by: Danial Martinez MD @ 08/25/2024 9:51:00 AM (Electronically Signed)
--- NOTE | 2024-08-25 09:15 | CRLHL7_ITS ---
For Patients: As a result of the Century Cures Act, medical imaging exams and procedure reports are released immediately into your electronic medical record. You may view this report before your referring provider. If you have questions, please contact your health care provider. PLEASE SEE BILATERAL DIAGNOSTIC MAMMOGRAM OF SAME DAY FOR COMBINED REPORT. [email or web address] RD/Dictated by: Danial Martinez MD @ 08/25/2024 9:51:00 AM (Electronically Signed)
== END 2024-08-25 08:39 | disposition home or self-care (01) ==
LOC: MAMMO 08:39
PROVIDERS: PCP Family Medicine; Visit Provider Family Medicine
DX: N63.20 Unspecified lump in the left breast, unspecified quadrant (principal)
CPT/HCPCS: 76642; 77066; G0279

== ENCOUNTER 2024-10-25 12:12 | Outpatient (CLI) | payer OTHER, SELFPAY ==
--- NOTE | 2024-10-25 12:15 | CRLHL7_ITS ---
For Patients: As a result of the Cures Act, medical imaging exams and procedure reports are released immediately into your electronic medical record. You may view this report before your referring provider. If you have questions, please contact your health care provider. INDICATION: First trimester scan, establish dates. COMPARISON: None. TECHNIQUE: Real-time chapa-scale imaging of the pelvis was performed. FINDINGS: Sonographic imaging demonstrates a single living intrauterine gestation. The embryo demonstrates a regular cardiac rate measuring 176 beats per minute. The embryo`s crown-rump length measurement of 1.8 cm corresponds to a gestational age of 8 weeks 2 days with a sonographic due date of 06/04/2025. There is a normal-appearing yolk sac. There are no gross abnormalities noted within the embryo at this early state of development. The gestational sac has a normal appearance. There is no evidence of a perigestational hemorrhage. The amount of fluid within the sac appears appropriate for gestational age. The cervix is closed. The myometrium appears normal. Left ovary absent. Corpus luteal cyst right ovary. There are no suspicious fluid collections noted in the cul-de-sac. IMPRESSION: Single living intrauterine with sonographic gestational age 8 weeks 2 days and sonographic due date of 06/04/2025. Dictated by Danial Martinez MD @ 10/25/2024 1:08:41 PM (Electronically Signed)
== END 2024-10-25 12:13 | disposition home or self-care (01) ==
LOC: US 12:13
PROVIDERS: PCP Family Medicine; Visit Provider Advanced Practice Midwife
DX: Z34.91 Encounter for supervision of normal pregnancy, unspecified, first trimester (principal); Z3A.08 8 weeks gestation of pregnancy
CPT/HCPCS: 76817

== ENCOUNTER 2024-11-06 09:20 | Outpatient (CLI) | payer OTHER, SELFPAY | END 2024-11-06 09:21 | disposition home or self-care (01) | LOC: NFLDREF 15:36 | PROVIDERS: PCP Family Medicine; Referring Provider Family Medicine; Visit Provider Advanced Practice Midwife | DX: Z34.01 Encounter for supervision of normal first pregnancy, first trimester (principal); Z13.79 Encounter for other screening for genetic and chromosomal anomalies; Z67.31 Type AB blood, Rh negative | CPT/HCPCS: 83020; 83021; 85660; 86592; 86703; 86704; 86706; 86762; 86787; 86803; 86850; 86900; 86901; 87086; 87186; 87340 ==

== ENCOUNTER 2024-12-25 11:13 | Outpatient (CLI) | payer OTHER, SELFPAY | END 2024-12-25 11:14 | disposition home or self-care (01) | PROVIDERS: PCP Family Medicine; Visit Provider Advanced Practice Midwife | DX: O09.512 Supervision of elderly primigravida, second trimester (principal); O23.42 Unspecified infection of urinary tract in pregnancy, second trimester; Z3A.16 16 weeks gestation of pregnancy | CPT/HCPCS: 81511; 82105; 87086 ==

== ENCOUNTER 2025-03-14 11:47 | Outpatient (CLI) | payer OTHER, SELFPAY | END 2025-03-14 11:48 | disposition home or self-care (01) | LOC: NFLDREF 11:48 | PROVIDERS: PCP Family Medicine; Visit Provider Advanced Practice Midwife | DX: Z34.03 Encounter for supervision of normal first pregnancy, third trimester (principal); Z67.31 Type AB blood, Rh negative | CPT/HCPCS: 86592; 86850; J2791 ==

== ENCOUNTER 2025-03-28 12:15 | Outpatient (CLI) | payer OTHER, SELFPAY ==
--- NOTE | 2025-03-28 12:15 | CRLHL7_ITS ---
For Patients: As a result of the Century Cures Act, medical imaging exams and procedure reports are released immediately into your electronic medical record. You may view this report before your referring provider. If you have questions, please contact your health care provider. OB ULTRASOUND RANDAL by LMP: 06/05/2025. GA: 30 w, 1 d. Single. Comparison: 01/22/2025. INDICATION: Growth. Follow-up hypoechoic/homogeneous structure on left. TECHNIQUE: Real time grayscale imaging of the fetus was performed. Transabdominal. CERVIX: Not visualized. POSITIONING: Vertex. AMNIOTIC FLUID: 6.0 cm. SDP (N: greater than 2 x 1 cm) PLACENTA: Technique: Transabdominal. PLACENTA POSITION: Anterior. DOPPLER: heart rate: 150 bpm. BIOMETRY: BPD: 7.8 cm. 31 w, 2 d, 71.7 percent. HC: 28.7 cm. 31 w, 3 d, 53.8 percent. AC: 27.4 cm. 31 w, 3 d, 82.0 percent. FL: 5.9 cm. 30 w, 6 d, 56.4 percent. FL/AC ratio: 21.61 percent. HC/AC ratio: 1.05. EFW: 1732 g. Weight: 3 lbs, 13 oz. age by this US: 31 w, 2 d. RANDAL by this US: 05/28/2025. Percentile by RANDAL: 76.6 percent. IMPRESSION: 1. Sonographic gestational age 31 weeks 2 days and sonographic due date 05/28/2025. Sonographic age is 8 days ahead of the clinical age. 2. Estimated weight 77th percentile. Abdominal circumference 82nd percentile. 3. Left anterior uterine fibroid measures 2.4 x 1.2 x 2.5 cm. Danial Martinez M.D. Diagnostic Radiologist [email or web address] MICKEY/juliet chung/Dictated by: Danial Martinez MD @ 03/28/2025 2:42:00 PM (Electronically Signed)
== END 2025-03-28 12:16 | disposition home or self-care (01) ==
PROVIDERS: PCP Family Medicine; Visit Provider Advanced Practice Midwife
DX: O09.523 Supervision of elderly multigravida, third trimester (principal); Z3A.30 30 weeks gestation of pregnancy; O26.899 Other specified pregnancy related conditions, unspecified trimester; R10.2 Pelvic and perineal pain; Z51.89 Encounter for other specified aftercare
CPT/HCPCS: 76816

== ENCOUNTER 2025-05-16 10:05 | Outpatient (CLI) | payer OTHER, SELFPAY ==
[2025-05-17 13:50] LABS: Strep B DNA Probe Negative (Negative)
[2025-05-17 13:52] LABS: Strep B Susceptibility Needed? No
== END 2025-05-16 10:06 | disposition home or self-care (01) ==
LOC: NFLDREF 10:05
PROVIDERS: PCP Family Medicine; Visit Provider Midwife
DX: O09.523 Supervision of elderly multigravida, third trimester (principal); Z3A.37 37 weeks gestation of pregnancy
CPT/HCPCS: 87081; 87653

== ENCOUNTER 2025-06-01 09:07 | Outpatient (CLI) | payer OTHER, SELFPAY ==
--- NOTE | 2025-06-01 09:15 | CRLHL7_ITS ---
For Patients: As a result of the Cures Act, medical imaging exams and procedure reports are released immediately into your electronic medical record. You may view this report before your referring provider. If you have questions, please contact your health care provider. OB ULTRASOUND RANDAL by LMP or US: 06/05/2025. GA: 39 w, 3 d. Single. Comparison: Ultrasound 03/28/2023, 01/22/2023. INDICATION: AMA. TECHNIQUE: Real time grayscale imaging of the fetus was performed. Transabdominal. CERVIX: Not visualized. POSITIONING: Vertex. AMNIOTIC FLUID: 5.0 cm. SDP (N: greater than 2 x 1 cm) BIOPHYSICAL PROFILE: 2: Gross body movements 2: tone 0: Respiratory activity 2: Amniotic fluid SDP (N: greater than 2 x 1 cm) 6/8: Total score PLACENTA: Technique: Transabdominal. PLACENTA POSITION: Anterior. DOPPLER: heart rate: 150 bpm. IMPRESSION: Biophysical profile score 6/8. Absent breathing activity. Danial Martinez M.D. Diagnostic Radiologist [email or web address] MICKEY/[email or web address] chung/Dictated by: Danial Martinez MD @ 06/01/2025 10:15:00 AM (Electronically Signed)
== END 2025-06-01 09:08 | disposition home or self-care (01) ==
LOC: US 09:08
PROVIDERS: PCP Family Medicine; Visit Provider Midwife
DX: O09.523 Supervision of elderly multigravida, third trimester (principal); Z3A.39 39 weeks gestation of pregnancy
CPT/HCPCS: 76819

== ENCOUNTER 2025-06-05 12:07 | Outpatient (CLI) | payer OTHER, SELFPAY ==
[2025-06-05 12:11] VITALS: PULSE 97; O2SAT 99
[2025-06-05 12:12] VITALS: BP 118/72; PULSE 100
--- NOTE | 2025-06-05 13:05 | PM.OBLDTN ---
OB - Triage/Final Diagnosis Visit Information Date Seen: 06/05/25 Narrative: The patient is a 44 year old 1 para 0 at 40 0/7 weeks gestation by LMP, who presents with equivocal NST for surveillance in clinic setting. She arrives for more monitoring due to subtle decels of unknown significance. Otherwise, NST looked great with normal baseline, moderate variability, + accels. A: surveillance P: NST reactive. Discharge to home. Precuations reviewed. Knows when to call for labor. Reviewed IOL scheduled for Wednesday Kelsey at 1800. Laxmi and Dg agree with plan and have no further questions at this time. Will return for NST on Wednesday and appt in clinic or sooner as indicated. Evaluation Vital signs: Vital Signs - 24 hr 06/05/25 12:11 06/05/25 12:12 06/05/25 12:12 Pulse Rate 100 Blood Pressure 118/72 Pulse Oximetry 99 Comments: Vitals Reviewed Constitutional:? Alert and oriented x3 HEENT:? Normocephalic, atraumatic Neck:? Supple Lungs:? Clear to auscultation bilaterally Heart:? Regular rate and rhythm, no murmur, rub or gallop Abdomen:? Soft, nontender, and gravid. Vertex by Sim's. Extremities:? No edema or erythema Cervix: declined by patient NST: 140 bpm/moderate variability/accelerations present/decelerations absent/contractions have picked up with irregularity and varying intensity.
--- NOTE | 2025-06-05 14:21 | PC.OBNST ---
NST Note NST Note Start: 06/05/25 12:21 Freq: ONCE Status: Active Protocol: Document 06/05/25 14:19 JADEN (Rec: 06/05/25 14:20 JADEN Desktop) NST Note 1 Para (# of births) 0 EDC 06/05/25 Gestational Age In 40 Weeks & 0 Days Weeks & Days High Risk Factors Advanced Maternal Age Patient Presented Decreased movement with Complaint(s) of Reactive Yes Appropriate for Yes Gestational Age RICHARD Iqbal RN Date 06/05/25 Reactive Yes Appropriate for Yes Gestational Age RICHARD Jansen RN Date 06/05/25 OB NST charge Yes Complete NST Note Yes via Write Note The provider's electronic signature indicates the NST is reactive/appropriate for gestational age. *Note to provider: If an addendum is required, open the patient's chart and click on the note under the Nurse/Allied Health tab.
== END 2025-06-05 14:00 | disposition home or self-care (01) ==
LOC: OB OUT 12:08 → OB 12:10
PROVIDERS: PCP Family Medicine; Visit Provider Midwife
DX: O36.8130 Decreased fetal movements, third trimester, not applicable or unspecified (principal); Z3A.40 40 weeks gestation of pregnancy
CPT/HCPCS: 59025; G0463

== ENCOUNTER 2025-06-08 15:17 | Inpatient (IN) | payer OTHER, SELFPAY ==
[2025-06-08 15:24] VITALS: PULSE 91; O2SAT 98
[2025-06-08 15:25] VITALS: BP 120/76; PULSE 96; TEMP 36.7
[2025-06-08 15:34] VITALS: BMI 31.1
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
[2025-06-08] MEDS: DINOPROSTONE 10 MG VAGINAL INSERT VAGINAL (18:25)
[2025-06-08 18:33] LABS: Hematocrit 33.7 % (33.0-51.0); Hemoglobin* 11.3 gm/dL (12.0-16.0); Immature Granulocytes Abs Auto 0.20 K/uL (0.00-0.30); Immature Granulocytes Pct Auto 1.4 %; Mean Corpuscular HGB Conc 34 gm/dL (32-36); Mean Corpuscular Hemoglobin 29 pg (26-34); Mean Corpuscular Volume 87 fL (80-100); RDW Coefficient of Variation % 12.5 % (11.5-15.5); Red Blood Count 3.88 m/uL (4.00-5.20); White Blood Count* 14.53 K/uL (4.50-11.00)
[2025-06-08 18:40] LABS: Lymphocytes Absolute Auto 2.00 K/uL (0.90-2.90); Slide Review Reflex No
[2025-06-08 19:28] VITALS: BP 133/68; PULSE 80; RESP 16; TEMP 36.7
[2025-06-09] VITALS (13 sets, daily range): BP systolic 90–144; BP diastolic 54–79; PULSE 20–94; RESP 16–18; TEMP 36.7–36.9; O2SAT 81–99
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
[2025-06-09] MEDS: LACTATED RINGERS 1000 ML 1,000 ML 125 ML IV (19:55)
[2025-06-09] MEDS: OXYTOCIN 30 unit/500 ML in NS 30 UNIT/500 ML BAG IVPB (19:55)
[2025-06-10] VITALS (99 sets, daily range): BP systolic 91–145; BP diastolic 41–87; PULSE 70–107; RESP 13–24; TEMP 36.4–37.4; O2SAT 90–100
[2025-06-10] MEDS: ROPIVACAINE 0.2% 100 ml 100 ML 12 MG EPIDURAL ×2 (00:15→08:12)
[2025-06-10] MEDS: LIDOCAINE 2% (PF) 5 ML VIAL EPIDURAL (00:15)
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
[2025-06-10] MEDS: LACTATED RINGERS 1000 ML 1,000 ML IV (00:28)
[2025-06-10] MEDS: PHENYLEPHRINE 100 MCG/ML SYRINGE IVP (02:11)
[2025-06-10] MEDS: ONDANSETRON 2 MG/ML inj 4 MG IV (03:51)
[2025-06-10] MEDS: LACTATED RINGERS 1000 ML 1,000 ML 500 ML IV (05:10)
[2025-06-10] MEDS: LACTATED RINGERS 1000 ML 1,000 ML 125 ML IV ×2 (08:24→18:02)
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
[2025-06-10] MEDS: AZITHROMYCIN 500 MG in 0.9 % SODIUM CHLORIDE 250 ml 250 ML 255 MG IVPB (10:14)
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
[2025-06-10 10:46] LABS: Hematocrit 34.0 % (33.0-51.0); Hemoglobin* 11.6 gm/dL (12.0-16.0); Immature Granulocytes Pct Auto 0.6 %; Mean Corpuscular HGB Conc 34 gm/dL (32-36); Mean Corpuscular Hemoglobin 29 pg (26-34); Mean Corpuscular Volume 85 fL (80-100); RDW Coefficient of Variation % 12.6 % (11.5-15.5); Red Blood Count 3.98 m/uL (4.00-5.20); White Blood Count* 20.57 K/uL (4.50-11.00)
[2025-06-10 10:48] LABS: Immature Granulocytes Abs Auto 0.10 K/uL (0.00-0.30); Lymphocytes Absolute Auto 1.00 K/uL (0.90-2.90); Slide Review Reflex No
[2025-06-10] MEDS: miSOPROStoL 800 MCG/4 TABLET PR (12:09)
--- NOTE | 2025-06-10 12:09 | SUR.OPER ---
Primary , pt had intraop uterine atony, QBL 1530. Received 40 u Pitocin in IVF bag, 1 methergen, 1g TXA, 800 cytotec. Cord blood, cord gases and placenta sent. QBL 1530
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
--- NOTE | 2025-06-10 12:30 | P.ANES_ITS ---
Anesthesia Charges Start Date/Time Anesthesia Start Date: 06/10/25 Anesthesia Start Time: 10:49 Stop Date/Time Anesthesia Stop Date: 06/10/25 Anesthesia Stop Time: 12:27 Summary Emergency: FRONT OFFICE MEDICAL ASSISTANT Coding CPT Codes CPT Codes: ANES/ANALG CS DELIVER ADD-ON - 86420 ([id number]) P2 - PATIENT W/MILD SYST DISEASE, QZ - FRONT OFFICE MEDICAL ASSISTANT SVC W/O POWER TECHNICIAN BY Additional Codes: Summary - Emergency: FRONT OFFICE MEDICAL ASSISTANT ([id number])
--- NOTE | 2025-06-10 12:30 | W.ANESCHARGE ---
Anesthesia Charges Start Date/Time Anesthesia Start Date: 06/10/25 Anesthesia Start Time: 10:49 Stop Date/Time Anesthesia Stop Date: 06/10/25 Anesthesia Stop Time: 12:27 Summary Emergency: TANK FILLER Coding CPT Codes CPT Codes: ANES/ANALG CS DELIVER ADD-ON - 58043 ([id number]) P2 - PATIENT W/MILD SYST DISEASE, QZ - TANK FILLER SVC W/O PASTE WORKER BY Additional Codes: Summary - Emergency: TANK FILLER ([id number])
--- NOTE | 2025-06-10 12:31 | P.NB_ITS ---
Nerve Block Nerve Block Time Seen by Provider: 12:15 Date Seen: 06/10/25 Type of block requested by surgeon for post-operative analgesia: TAP Side: bilateral Time out performed: Yes Verification of patient name: Yes Verification of date of : Yes Site marking: not applicable Name of person performing procedure: Dayna Continuous monitoring Was continuous monitoring of O2 sat, B/P, lunchroom monitor, recorded every 15 minutes?: Yes Procedure Checklist: sterile prep, needles and gloves Ultrasound guided. Images saved: Yes Medications given in 5ml increments after negative aspiration: Marcaine %: 0.25 mL: 30 Needle gauge: 20 and Exparel mL: 10 Patient tolerated procedure well: Yes Block Charges Block Charge (with Pro Fee): TAP Bilateral Use of Ultrasound Machine for Block: Yes- US Guidance/pain block
--- NOTE | 2025-06-10 13:52 | P.OBPRC_ITS ---
Procedure Time Seen by Provider: 11:00 Date of procedure: 06/10/25 Will [facility] bill your pro fee for this procedure?: Yes IV fluids (mL): 1,000 Urine Output (mL): 150 (blood tinged ) Procedure Description: DELIVERY BY SECTION Date of Service: 06/10/25 Delivery time: 1109 Summary: Admitted for induction of labor at 40.3 weeks gestation on 06/08/25 due to non reassure NST in clinic. Primary Lower uterine transverse section, Pfannenstiel, Closed with sutures, QBL 1530 cc, Findings: Uterus was two small subserosal fibroids, uterine atony, normal bilateral fallopian tubes, normal right ovary. Left ovary surgically absent. OP and compound presentation. Blood tinged urine noted upon insertion of Mon catheter prior to procedure. 8/8 weight 3800 g. Primary Indication: 1. Nonreassuring heart tracing remote from delivery 2. Failure to descend 3. Occiput posterior position Procedures: Primary Lower uterine transverse section Specimens: Placenta Cord blood Cord gases Surgeon: Lizzette Shi MD Assistance: SHERWIN Wilkins Anesthesia: General Report: Prophylactic antibiotic, 2 g of Ancef and 500 mg of azithromycin was given before patient was taken to OR. After arrival to the operating room patient was placed in the supine position with left lateral tilt. She was prepped and draped in the usual sterile manner. General anesthesia was administered. Laparotomy A pfannenstiel incision was made through the anterior abdominal wall with #10 scalpel approximately 2 cm above the pubic symphysis. The incision was extended sharply with the #10 scalpel through the subcutaneous tissue to the level of fascia. The fascia was entered sharply with a #10 scalpel (Pfannenstiel) in the midline and extended in semi-elliptical fashion with digits using Rick-Mitchell technique. The rectus muscles were in the midline bluntly with digits. The peritoneum was then entered bluntly. The peritoneal incision was then extended superiorly and inferiorly under direct visualization with care being taken to avoid bladder and bowel. No adhesions were noted. The peritoneal incision was enlarged bluntly by lateral traction from the surgeon's and legal administrative assistant's hand. Julien retractor was inserted into the abdomen. Delivery A bladder flap was developed by grasping with [place] forcep and enter with Met[place]un scissor. Then sharp and blunt dissection with Metzenbaum scissor and fingers were performed. A low transverse hysterotomy was made then with #10 scalpel and extended laterally and cephalad with fingers in a low transverse fashion with Manu Doe technique with care being taken to avoid injury to the fetus. The amniotic cavity (membrane) was then entered with spontaneous rupture of membrane, and the amniotic fluid was noted to be thick meconium, fetus was delivered cephalic. With delivery of the baby, no extension was noted. Cord blood and cord segment obtained. Placenta was delivered spontaneously with steady traction on cord and manual separation of placenta from uterine wall. Closure Uterine cavity was cleaned after placental delivery with lap sponge x 3. Uterine atony was noted. Treated with 40u of pitocin, 0.2mg of methergine, 1g of TXA. The hysterotomy was closed in two layers with stitches using 0 vicryl with continuous locking stitches and 0 monocryl in a continuous non locking manner. 3 [id number] were placed at left hysterotomy angle. Hemostasis was achieved as needed with electrocautery. Marino applied to hysterotomy. The ovaries/tubes/uterine surface were evaluated. Findings noted above. Julien retractor removed and hemostasis was confirmed again. Fascia was closed with running stitches using 0 vicryl. Subcutaneous layer was irrigated. Hemostasis was checked for and found to be adequate. The subcutaneous layer was closed with running 2-0 chromic sutures. The skin was closed with 4-0 monocryl subcuticular sutures . The incision was cleaned, Exofin applied, and Mepilex dressing placed. The procedure considered terminate at this time. Intraoperative Complications: None QBL: 1530 cc Complications: Intraoperative hemorrhage due to uterine atony and large bleeding vessels at hysterotomy. Uterotonics/hemostatic agents: 40u of pitocin, 0.2mg of methergine, 1g of TXA, 800 mcg of misoprostol Disposition: The patient tolerated the procedure well. She was recovered in Obstetric PACU for close monitoring in stable condition, with a contracted uterus and normal transvaginal bleeding. The infant was sent to mother?s bedside. A segment of the cord was obtained for umbilical cord gases. Cord gases: ABG: pH 7.38, pCO2 35, HCO3 21, BE -3.6 VBG: pH 7.38, pCO2 36, HCO3 21, BE -3.4 The placenta was sent to pathology. Debrief with OR team performed and specimen reviewed at the conclusion of the procedure.
[2025-06-10 14:04] LABS: Hematocrit 30.1 % (33.0-51.0); Hemoglobin* 10.3 gm/dL (12.0-16.0); Immature Granulocytes Pct Auto 0.7 %; Lymphocytes Absolute Auto 0.70 K/uL (0.90-2.90); Mean Corpuscular HGB Conc 34 gm/dL (32-36); Mean Corpuscular Hemoglobin 30 pg (26-34); Mean Corpuscular Volume 87 fL (80-100); RDW Coefficient of Variation % 12.7 % (11.5-15.5); Red Blood Count 3.48 m/uL (4.00-5.20)
[2025-06-10 14:06] LABS: Immature Granulocytes Abs Auto 0.20 K/uL (0.00-0.30); Slide Review Reflex No; White Blood Count* 26.96 K/uL (4.50-11.00)
[2025-06-10] MEDS: ACETAMINOPHEN 500 MG TABLET 1000 MG PO (21:31)
[2025-06-11] VITALS (19 sets, daily range): BP systolic 92–119; BP diastolic 57–73; PULSE 73–88; RESP 16–18; TEMP 36.4–36.9; O2SAT 96–99
[2025-06-11] MEDS: ACETAMINOPHEN 500 MG TABLET 1000 MG PO ×3 (10:36→23:38)
[2025-06-11] MEDS: DOCUSATE SODIUM 100 MG CAPSULE PO (10:36)
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
[2025-06-11 14:44] LABS: Hematocrit 22.8 % (33.0-51.0); Immature Granulocytes Pct Auto 0.9 %; Mean Corpuscular HGB Conc 33 gm/dL (32-36); Mean Corpuscular Hemoglobin 30 pg (26-34); Mean Corpuscular Volume 90 fL (80-100); RDW Coefficient of Variation % 13.3 % (11.5-15.5); Red Blood Count 2.54 m/uL (4.00-5.20); White Blood Count* 17.69 K/uL (4.50-11.00)
[2025-06-11 14:47] LABS: Immature Granulocytes Abs Auto 0.20 K/uL (0.00-0.30)
[2025-06-11 14:49] LABS: Hemoglobin* 7.6 gm/dL (12.0-16.0); Lymphocytes Absolute Auto 1.20 K/uL (0.90-2.90); Slide Review Reflex No
[2025-06-11] MEDS: IRON SUCROSE COMPLEX 200 MG in 0.9 % SODIUM CHLORIDE 100 ml 100 ML 440 MG IVPB (16:20)
[2025-06-12] MEDS: IBUPROFEN 600 MG TABLET PO ×3 (05:27→20:16)
[2025-06-12 06:46] LABS: Hemoglobin* 7.2 gm/dL (12.0-16.0)
--- NOTE | 2025-06-12 08:10 | SUR.PHASEI ---
Chart verification completed by Jose L RAMOS per verbal confirmation over the phone with Shai RAMOS. 06/12/25 0806.
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
[2025-06-12] MEDS: DOCUSATE SODIUM 100 MG CAPSULE PO (09:05)
[2025-06-12] MEDS: ACETAMINOPHEN 500 MG TABLET 1000 MG PO ×3 (09:05→23:14)
[2025-06-12] MEDS: FERROUS SULFATE 325 MG TABLET PO (09:05)
[2025-06-12 09:35] VITALS: BP 96/61; PULSE 73; RESP 16; TEMP 36.5; O2SAT 98
[2025-06-12 12:05] VITALS: BP 101/60; PULSE 77; RESP 16; TEMP 36.5; O2SAT 97
[2025-06-12 15:19] VITALS: BP 97/65; PULSE 78; RESP 16; TEMP 36.7; O2SAT 98
[2025-06-12 20:00] VITALS: BP 111/71; PULSE 77; RESP 18; TEMP 36.4; O2SAT 99
[2025-06-13 00:35] VITALS: BP 110/64; PULSE 78; RESP 18; TEMP 36.7; O2SAT 97
[2025-06-13] MEDS: IBUPROFEN 600 MG TABLET PO ×2 (04:03→18:27)
[2025-06-13] MEDS: ACETAMINOPHEN 500 MG TABLET 1000 MG PO ×3 (07:00→18:27)
[2025-06-13 07:53] LABS: Hemoglobin* 8.5 gm/dL (12.0-16.0)
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
[2025-06-13] MEDS: DOCUSATE SODIUM 100 MG CAPSULE PO (08:36)
[2025-06-13 08:38] VITALS: BP 111/66; PULSE 76; RESP 18; O2SAT 96
[2025-06-13 17:35] VITALS: BP 117/76; PULSE 76; RESP 18; O2SAT 96
== END 2025-06-13 23:14 | disposition home or self-care (01) | DRG 787 ==
PROVIDERS: Advanced Practice Midwife; Midwife, Lay; Obstetrics & Gynecology; Admitting Provider Advanced Practice Midwife; PCP Family Medicine; Visit Provider Advanced Practice Midwife
PROC: 10D00Z1 Extraction of Products of Conception, Low, Open Approach (ICD-10-PCS; CPT 59514; principal; 2025-06-10 11:00)
DX: O76 Abnormality in fetal heart rate and rhythm complicating labor and delivery (principal); D62 Acute posthemorrhagic anemia; O72.1 Other immediate postpartum hemorrhage; O64.0XX0 Obstructed labor due to incomplete rotation of fetal head, not applicable or unspecified; O90.81 Anemia of the puerperium; O48.0 Post-term pregnancy; G89.18 Other acute postprocedural pain; O99.344 Other mental disorders complicating childbirth; F43.10 Post-traumatic stress disorder, unspecified; F41.9 Anxiety disorder, unspecified; F90.9 Attention-deficit hyperactivity disorder, unspecified type; O34.13 Maternal care for benign tumor of corpus uteri, third trimester; D25.2 Subserosal leiomyoma of uterus; G89.29 Other chronic pain; M54.9 Dorsalgia, unspecified; Z91.49 Other personal history of psychological trauma, not elsewhere classified; Z37.0 Single live birth; Z3A.40 40 weeks gestation of pregnancy
CPT/HCPCS: 01967; 01968; 36415; 36430; 59200; 64488; 76815; 76942; 82803; 85018; 85025; 85461; 86592; 86850; 86870; 86880; 86900; 86901; 86922; 88307; 99140; A4314; A9270; J0330; J0456; J0665; J0666; J0690; J1100; J1756; J1885; J2210; J2250; J2270; J2274; J2371; J2405; J2590; J2704; J2710; J2791; J2795; J3010; J7050; J7120; P9016